=== PATIENT | male | born 1975 | race Caucasian/White ===

== ENCOUNTER 2021-06-18 07:45 | Outpatient (RCR) | payer BC, SELFPAY ==
[2021-06-18 12:05] VITALS: BP 132/78; PULSE 77; RESP 18; TEMP 36.5; O2SAT 99
[2021-06-18] MEDS: FAMOTIDINE 20 MG TABLET PO (12:08)
[2021-06-18] MEDS: diphenhydrAMINE HCl CAP 25 MG CAPSULE PO (12:08)
[2021-06-18] MEDS: ACETAMINOPHEN 325 MG TABLET 650 MG PO (12:08)
[2021-06-18 13:37] VITALS: BP 124/68
--- NOTE | 2021-06-19 08:54 | PC.NURSE ---
Spoke to Mr Medrano, and he stated he is feeling better today. He has no questions at this time.
== END 2021-06-18 17:00 ==
LOC: AMCINF 07:45
PROVIDERS: PCP Physician Assistant; Visit Provider Internal Medicine Hematology & Oncology
DX: U07.1 COVID-19 (principal)
CPT/HCPCS: A9270; M0245; Q0245

== ENCOUNTER 2023-07-13 01:23 | Day surgery (SDC) | payer BC, SELFPAY ==
--- NOTE | 2023-07-08 13:03 | SUR.PREOP ---
Patient called regarding upcoming procedure. Reviewed preop instructions, appointment times, and procedure prep.
--- NOTE | 2023-07-12 17:44 | PM.HPGS ---
History of Present Illness History of Present Illness Consent: Risks, benefits, and alternatives have been discussed and questions answered. Patient agrees to proceed with procedure. Chief complaint: Other specified diseases of anus and rectum Narrative: Victor Hugo Medrano is a 47 year old male who has noticed four rectal 'masses' in the past year . He has not had blood in his stools. He has not had a change in bowel habits. He noticed these when he was showering. Review of Systems Review of Systems: All systems reviewed & are unremarkable except as noted in HPI and below PMFSH Past Medical History Medical History Atypical chest pain Gastroesophageal reflux disease with esophagitis Left foot pain Migraine headache Surgical History Surgical History H/O vasectomy [place] teeth removed Family History Family History Other Diabetes mellitus Family history of lung cancer Family history of lymphoma Family history of migraine headaches History of fibromyalgia Hypertension Social History Social History Smoking status: Never smoker Second hand tobacco smoke exposure: No Alcohol intake: never Substance use: never Substance use type: does not use Lack of Transportation: No Lack of Food: Never True Current Housing: I Have Housing Concerned About Future Housing: No Difficulty Paying Gas/Electric Bills: No Difficulty Paying for Meds: No Currently Unemployed: No Education: Bachelor's Degree Difficulty w/ Childcare or Family Care: No Living arrangements: with family Occupation/Education: occupation 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 Gender identity (if verbalized by the patient): Male Sexual Orientation (if Verbalized by the Patient): Straight or Heterosexual Spiritual care concerns: No Agree to blood products: Yes Meds Home Medications and Allergies Home Medications Medication Instructions Recorded Confirmed Type No Home Medications 05/25/23 07/13/23 History Allergies Allergy/AdvReac Type Severity Reaction Status Date / Time dextromethorphan AdvReac Severe chills, Verified 07/13/23 09:20 [From Mucinex DM] confusion guaifenesin [From Mucinex DM] AdvReac Severe chills, Verified 07/13/23 09:20 confusion Exam Resp: Auscultation: clear to auscultation bilaterally Cardio: Rate: regular rate Rhythm: regular rhythm GI: GI Palp: Yes Soft to palpation and No Tenderness to palpation present (GI) Assessment and Plan Assessment and plan (1) Other specified diseases of anus and rectum: Code(s): K62.89 - Other specified diseases of anus and rectum Status: Acute Assessment and Plan: Colonoscopy with possible biopsy or polypectomy or cautery or injection of substances.
[2023-07-13 09:12] VITALS: BP 122/78; PULSE 66; RESP 18; TEMP 36.1; O2SAT 100; BMI 28.5
[2023-07-13] MEDS: LACTATED RINGERS 1,000 ML 150 ML IV CONT (09:30)
--- NOTE | 2023-07-13 10:01 | WPDANESEPPF ---
Anes - Initial Pre Proc Eval Procedure: Operation Date: 07/13/23 10:30 Proposed Procedures p Colonoscopy - Jose Delgado MD Date/Time: 07/13/23 10:01 Surgeon: Jose Delgado MD Pre Op Diagnosis: Other specified diseases of anus and rectum Patient Data Age: 47 Gender: M Height: 1.78 m Weight: 90.1 kg Last Vital Signs Temp 96.9 F L 07/13/23 09:12 Pulse 66 07/13/23 09:12 Resp 18 07/13/23 09:12 BP 122/78 07/13/23 09:12 Pulse Ox 100 07/13/23 09:12 O2 Del Method Room Air 07/13/23 09:12 Allergies Allergy/AdvReac Type Severity Reaction Status Date / Time dextromethorphan AdvReac Severe chills, Verified 07/13/23 09:20 [From Mucinex DM] confusion guaifenesin [From Mucinex DM] AdvReac Severe chills, Verified 07/13/23 09:20 confusion Home Medications Medication Instructions Recorded Confirmed Type No Home Medications 05/25/23 07/13/23 History Patient hx anesthesia problems: none Family hx anesthesia problems: none Results Review: All pre-operative results and documents have been reviewed as part of the pre-operative evaluation. [facility] Past Medical History Medical History Atypical chest pain Gastroesophageal reflux disease with esophagitis Left foot pain Migraine headache Surgical History Surgical History H/O vasectomy [place] teeth removed Family History Family History Other Diabetes mellitus Family history of lung cancer Family history of lymphoma Family history of migraine headaches History of fibromyalgia Hypertension Social History Social History Smoking status: Never smoker Second hand tobacco smoke exposure: No Alcohol intake: never Substance use: never Substance use type: does not use Lack of Transportation: No Lack of Food: Never True Current Housing: I Have Housing Concerned About Future Housing: No Difficulty Paying Gas/Electric Bills: No Difficulty Paying for Meds: No Currently Unemployed: No Education: Bachelor's Degree Difficulty w/ Childcare or Family Care: No Living arrangements: with family Occupation/Education: occupation 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 Gender identity (if verbalized by the patient): Male Sexual Orientation (if Verbalized by the Patient): Straight or Heterosexual Spiritual care concerns: No Agree to blood products: Yes Anes - Eval Final PreProcedure Day of Procedure 07/13/23 10:01 Patient weight: normal Heart: regular rate and rhythm Lungs: clear to auscultation Airway: Mallampati scale class II Neurological: alert and oriented Last oral intake: >/= 8 hours ASA classification: II Emergent: no Anesthetic plan: proceed Anesthesia type and monitoring: general GIVS and standard monitoring Results Review: All pre-operative results and documents have been reviewed as part of the pre-operative evaluation. Informed Consent: The patient's anesthetic plan and its attendant risks and benefits were discussed with the patient/family/POA. Questions were solicited and answers provided to the satisfaction of the patient/family/POA.
[2023-07-13 10:45] VITALS: BP 98/61; PULSE 69; RESP 13; O2SAT 96
[2023-07-13 10:55] VITALS: BP 91/56; PULSE 68; RESP 25; O2SAT 98
[2023-07-13 11:05] VITALS: BP 105/63; PULSE 19; RESP 18; O2SAT 98
== END 2023-07-13 11:16 | disposition home or self-care (01) ==
PROVIDERS: PCP Family Medicine; Visit Provider Internal Medicine Gastroenterology
PROC: 0DJD8ZZ Inspection of Lower Intestinal Tract, Via Natural or Artificial Opening Endoscopic (ICD-10-PCS; CPT 45378; principal; 2023-07-13 10:30)
DX: K62.89 Other specified diseases of anus and rectum (principal); K57.30 Diverticulosis of large intestine without perforation or abscess without bleeding; K21.9 Gastro-esophageal reflux disease without esophagitis; Z80.1 Family history of malignant neoplasm of trachea, bronchus and lung; Z80.7 Family history of other malignant neoplasms of lymphoid, hematopoietic and related tissues
CPT/HCPCS: 45378; J2704; J7120